=== PATIENT | male | born 1935 | race Caucasian/White ===

== ENCOUNTER 2016-09-23 20:42 | Emergency (ER) | payer OTHER ==
[~2016-09-23] VITALS: Ht 175.3 cm; Wt 74.0 kg
[~2016-09-23 20:42] MED LIST: ASPI81TA82 PO; METH750T2 PO; TAMS0.4C67 PO; TRAM50 PO
--- NOTE | 2016-09-23 21:00 | PD ---
HPI Chief Complaint: Alcohol/Drug Intoxication Time Seen by Provider: 21:00 Travel History International Travel<30 days: No Contact w/Intl Traveler<30days: No Traveled to known affect area: No History of Present Illness HPI 81-year-old male presents to the emergency department under [facility] act for evaluation. Patient states he has been drinking a lot of alcohol today because his is stressing him out. He was found lying down in the park, [place]. When he was awoken bilateral enforcement, he had a strong smell of alcohol on his breath and slurred speech. Patient denies any injury. He denies any pain. He is concerned about his being home alone. Denies any other acute medical needs at this time. 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) Hypertension: Yes Immunizations Current: Yes Past Surgical History Abdominal Surgery: Yes (ABDOMINAL LINING REPAIR) Other Surgery: Yes (HERNIA REPAIR) Social History Alcohol Use: Yes (DAILY BEER) Tobacco Use: Yes (CIGARS) Substance Use: No Allergies-Medications (Allergen,Severity, Reaction): Coded Allergies: No Known Allergies (Unverified , 09/23/16) Reported Meds & Prescriptions Reported Meds & Active Scripts Active No Active Prescriptions or Reported Medications Review of Systems ROS Limitations: Intoxication Except as stated in HPI: all other systems reviewed are Neg Physical Exam Exam Limitations: Intoxication Narrative GENERAL: Well-nourished, well-developed elderly male patient, arousable in no acute distress SKIN: Focused skin assessment warm/dry. HEAD: Normocephalic. EYES: No scleral icterus. No injection or drainage. NECK: Supple, trachea midline. No JVD or lymphadenopathy. CARDIOVASCULAR: Regular rate and rhythm without murmurs, gallops, or rubs. RESPIRATORY: Breath sounds equal bilaterally. No accessory muscle use. GASTROINTESTINAL: Abdomen soft, non-tender, nondistended. MUSCULOSKELETAL: No cyanosis, or edema. BACK: Nontender without obvious deformity. No CVA tenderness. Data Data Last Documented VS Vital Signs Date Time Temp Pulse Resp B/P Pulse Ox O2 Delivery O2 Flow Rate FiO2 09/23/16 21:13 98.4 59 18 119/76 96 Orders Complete Blood Count With Diff (09/23/16 20:59) Comprehensive Metabolic Panel (09/23/16 20:59) Urinalysis - C+S If Indicated (09/23/16 20:59) Electrocardiogram (09/23/16 20:59) Iv Access Insert/Monitor (09/23/16 20:59) Drug Screen, Random Urine (09/23/16 20:59) Alcohol (Ethanol) (09/23/16 20:59) Labs Laboratory Tests Test 09/23/16 09/23/16 21:10 23:40 White Blood Count 8.6 TH/MM3 Red Blood Count 3.99 MIL/MM3 Hemoglobin 13.2 GM/DL Hematocrit 38.1 % Mean Corpuscular Volume 95.7 FL Mean Corpuscular Hemoglobin 33.2 PG Mean Corpuscular Hemoglobin 34.7 % Concent Red Cell Distribution Width 13.7 % Platelet Count 238 TH/MM3 Mean Platelet Volume 7.6 FL Neutrophils (%) (Auto) 54.3 % Lymphocytes (%) (Auto) 36.8 % Monocytes (%) (Auto) 6.2 % Eosinophils (%) (Auto) 2.2 % Basophils (%) (Auto) 0.5 % Neutrophils # (Auto) 4.7 TH/MM3 Lymphocytes # (Auto) 3.2 TH/MM3 Monocytes # (Auto) 0.5 TH/MM3 Eosinophils # (Auto) 0.2 TH/MM3 Basophils # (Auto) 0.0 TH/MM3 CBC Comment DIFF FINAL Differential Comment Sodium Level 137 MEQ/L Potassium Level 3.4 MEQ/L Chloride Level 103 MEQ/L Carbon Dioxide Level 23.6 MEQ/L Anion Gap 10 MEQ/L Blood Urea Nitrogen 17 MG/DL Creatinine 1.06 MG/DL Estimat Glomerular Filtration 67 ML/MIN Rate Random Glucose 95 MG/DL Calcium Level 8.1 MG/DL Total Bilirubin 0.3 MG/DL Aspartate Amino Transf 20 U/L (AST/SGOT) Alanine Aminotransferase 16 U/L (ALT/SGPT) Alkaline Phosphatase 77 U/L Total Protein 6.9 GM/DL Albumin 3.6 GM/DL Ethyl Alcohol Level 222 MG/DL Urine Color LIGHT-YELLOW Urine Turbidity CLEAR Urine pH 5.0 Urine Specific [place] 1.005 Urine Protein NEG mg/dL Urine Glucose (UA) NEG mg/dL Urine Ketones NEG mg/dL Urine Occult Blood NEG Urine Nitrite NEG Urine Bilirubin NEG Urine Urobilinogen LESS THAN 2.0 MG/DL Urine Leukocyte Esterase NEG Urine RBC LESS THAN 1 /hpf Urine WBC 1 /hpf Urine Squamous Epithelial <1 /hpf Cells Urine Mucus FEW /lpf Microscopic Urinalysis Comment CULT NOT INDICATED Urine Opiates Screen NEG Urine Barbiturates Screen NEG Urine Amphetamines Screen NEG Urine Benzodiazepines Screen NEG Urine Cocaine Screen NEG Urine Cannabinoids Screen NEG MDM Medical Decision Making Medical Screen Exam Complete: Yes Emergency Medical Condition: Yes Medical Record Reviewed: Yes Differential Diagnosis Intoxication versus electrolytes abnormality versus substance abuse versus mood disorder versus syncope versus near-syncope Narrative Course 81-year-old male presents to the emergency department and requires act. Patient is arousable.. He is without acute distress. He does admit to drinking large amount of alcohol today. States he is concerned about taking care of his , however his describe that bedside and is irritated at her 's behavior. He takes her keys and leads and states she'll be back in the morning to pick him up. Lab work is without acute concern except for EtOH is 222. Patient will be observed until he is clinically sober and he has a safer at home Diagnosis Primary Impression: Alcohol intoxication Qualified Code: F10.929 - Alcohol intoxication, with unspecified complication Referrals: [facility] (Out patient) Patient Instructions: Abuse of Alcohol (ED), General Instructions Additional Instructions: Consumed alcohol in moderation Follow-up with her primary care provider Return immediately with any acute worsening of symptoms Med/Other Pt SpecificInfo: No Change to Meds Scripts No Active Prescriptions or Reported Meds Disposition: 01 DISCHARGE HOME Condition: Stable DurhamKhoa harrisonroseann RUELAS Sep 23, 2016 21:00
[2016-09-23 21:13] VITALS: BP 119/76; PULSE 59; RESP 18; TEMP 98.4; O2SAT 96
[2016-09-23 22:00] LABS: AUTOMATED NEUTROPHIL # 4.7 TH/MM3 (1.8-7.7); BASOPHIL % 0.5 % (0.0-2.0); EOSINOPHIL # 0.2 TH/MM3 (0-0.4); EOSINOPHIL % 2.2 % (0.0-4.0); HEMATOCRIT 38.1 % (39.0-51.0); HEMO FLAGS DIFF FINAL; LYMPH % 36.8 % (9.0-44.0); LYMPHOCYTE # 3.2 TH/MM3 (1.0-4.8); MEAN CELL VOLUME 95.7 FL (80.0-100.0); MEAN CORPUSCULAR HEMOGLOBIN 33.2 PG (27.0-34.0); MEAN CORPUSCULAR HGB CONC 34.7 % (32.0-36.0); MONO % 6.2 % (0.0-8.0); NEUT % 54.3 % (16.0-70.0); PLATELET COUNT 238 TH/MM3 (150-450); RED BLOOD COUNT 3.99 MIL/MM3 (4.50-5.90); RED CELL DISTRIBUTION WIDTH 13.7 % (11.6-17.2); WHITE BLOOD COUNT 8.6 TH/MM3 (4.0-11.0)
[2016-09-23 22:24] LABS: ALT (GPT) 16 U/L (12-78); ANION GAP 10 MEQ/L (5-15); AST (GOT) 20 U/L (15-37); BICARBONATE 23.6 MEQ/L (21.0-32.0); BLOOD UREA NITROGEN 17 MG/DL (7-18); CHLORIDE 103 MEQ/L (98-107); GLOMERULAR FILTRATION RATE 67 ML/MIN (>89); POTASSIUM 3.4 MEQ/L (3.5-5.1); SODIUM (NA) 137 MEQ/L (136-145)
[2016-09-23 22:27] LABS: ALKALINE PHOSPHATASE 77 U/L (45-117); TOTAL BILIRUBIN ADULT 0.3 MG/DL (0.2-1.0)
[2016-09-24] VITALS: BP 124/74; PULSE 64; RESP 18; O2SAT 97
[2016-09-24 00:27] LABS: BLOOD, URINE NEG (NEG); COMMENT (UR) CULT NOT INDICATED; CULTURE IF INDICATED CULT NOT INDICATED; GLUCOSE,URINE NEG (NEG); KETONE, URINE NEG (NEG); MUCUS URINE FEW /lpf (OCC); NITRITE,URINE NEG (NEG); SQUAMOUS EPITHELIAL CELL URINE <1 /hpf (0-5); URINE COLOR LIGHT-YELLOW (YELLW/STRAW)
[2016-09-24 00:28] LABS: AMPHETAMINE, URINE NEG (NEG); BARBITURATES, URINE NEG (NEG); COCAINE, URINE NEG (NEG)
[2016-09-24 04:00] VITALS: BP 117/72; PULSE 60; RESP 18; O2SAT 96
--- NOTE | 2016-09-24 15:46 | EKG ---
Date Performed: 09/23/2016 Time Performed: 21:16:33 PTAGE: 81 years EKG: SINUS BRADYCARDIA INFRALATERAL Q-WAVES, CANNOT RULE OUT PREVIOUS INFRALATERAL WALL MYOCARDI AL INFARCTION OF UNDETERMINED AGE NO PREVIOUS TRACING ABNORMAL ECG NO PREVIOUS TRACING DOCTOR: Devyn Griggs Interpretating Date/Time 09/24/2016 15:46:06
== END 2016-09-24 06:47 | disposition home or self-care (01) ==
LOC: NEPD 20:42
DX: F10.129 Alcohol abuse with intoxication, unspecified (principal); R00.1 Bradycardia, unspecified; R94.31 Abnormal electrocardiogram [ECG] [EKG]; I25.2 Old myocardial infarction; I10 Essential (primary) hypertension; F17.290 Nicotine dependence, other tobacco product, uncomplicated; Z86.73 Personal history of transient ischemic attack (TIA), and cerebral infarction without residual deficits
CPT/HCPCS: 80053; 80307; 81001; 85025; 93005